=== PATIENT | female | born 1965 | race Caucasian/White ===

== ENCOUNTER 2018-11-23 06:03 | Inpatient (IN) | payer OTHER ==
[~2018-11-23] VITALS: Ht 162.6 cm; Wt 107.8 kg
[2018-11-23] VITALS (17 sets, daily range): BP systolic 93–162; BP diastolic 53–96; PULSE 56–84; RESP 14–23; Ht 162.6 cm; Wt 107.8 kg
[~2018-11-23 06:03] MED LIST: CLINDAMYCIN 600 MG/D5W (PMX) 50 ML IVPB ONE; LEVO75TA65 PO
[2018-11-23] MEDS: SOD CHLORIDE 0.9% 1,000 ML IV SCH ×4 (06:30→18:18)
[2018-11-23] MEDS ORDERED: BUPIVACAINE 0.25% (MPF) 30 ML INJ ONE (07:04)
--- NOTE | 2018-11-23 07:27 | PREAC ---
Date/Time of Note Date/Time of Note DATE: 11/23/18 TIME: 07:26 Anesthesia Eval and Record Evaluation Time Pre-Procedure Interview DATE: 11/23/18 TIME: 07:26 Age 53 Sex female NPO: 8 hrs Preoperative diagnosis Abdominal mass Planned procedure Excision of abdominal mass Past Medical History Past Medical History: Includes Endo: Hypothyroid GI: Morbid obesity Surgery & Anesthesia Issues No known issue Meds Anticoagulation: No Beta Lance within 24 hr: No Reason Beta Lance not given: Pt. not on B-Lance Reported Medications Levothyroxine Sodium* (Levoxyl*) 75 Mcg Tablet, 75 MCG PO BEFORE BREAKFAST, #30 TAB 08/31/18 Current Medications Sodium Chloride 1,000 ml @ 75 mls/hr [id number] IV ; Start 11/23/18 at 06:00; Stop 11/23/18 at 23:00 Meds reviewed: Yes Allergies Coded Allergies: Penicillins (Verified Allergy, Unknown, 11/23/18) Allergies Reviewed: Yes Labs/Studies Labs Reviewed: Reviewed by anesthesiologist Result Diagram: 11/23/18 0705 Laboratory Tests 11/23/18 07:05 test: N/A Studies: ECG Pre-procedure Exam Airway: Adequate mouth opening, Adequate thyromental dist Mallampati: Mallampati II Teeth: Normal Lung: Normal Heart: Normal ASA Physical Status ASA physical status: 3 Emergency: None Planned Anesthetic General/MAC: ETT Planned Pain Management Parenteral pain med Pre-operative Attestations Prior to commencing anesthesia and surgery, the patient was re-evaluated, there was verification of: *The patient's identity *The results of appropriate recent lab work and preoperative vital signs *The above evaluation not changing prior to induction *Anesthetic plan, risk benefits, alternative and complications discussed with patient/family; questions answered; patient/family understands, accepts and wishes to proceed. CRISTOBAL OSBORN MD Nov 23, 2018 07:27
[2018-11-23] MEDS ORDERED: MIDAZOLAM 1 MG/ML 2 ML INJ ONE (07:34)
[2018-11-23] MEDS ORDERED: PROPOFOL 20 ML ONE (08:05)
[2018-11-23] MEDS ORDERED: CEFAZOLIN 1 GM INJ ONE ×2 (08:05)
[2018-11-23] MEDS ORDERED: LIDOCAINE 2% (SDV) 5 ML INJ ONE (08:05)
[2018-11-23] MEDS ORDERED: ETOMIDATE 20 MG INJ ONE (08:05)
[2018-11-23] MEDS ORDERED: ONDANSETRON 4 MG INJ ONE ×2 (08:06→08:38)
--- NOTE | 2018-11-23 08:14 | OPR ---
Date/Time of Note Date/Time of Note DATE: 11/23/18 TIME: 08:11 Operative Report Procedure Date: Nov 23, 2018 Preoperative Diagnosis left abdominal wall mass Postoperative Diagnosis same Operation/Procedure Performed 1. excision of left abdominal wall mass 15 cm x 14 cm incision 20 cm 2. localized adjacent tissue transfer with the use of skin flaps 200 sq cm defect of abdominal wall 3. therapeutic injection of subcutaneous local anesthesia Surgeon see signature line Leather Drier none Anesthesia Type: general Estimated Blood Loss: 10 - 50 ml's Transfusion none Specimen left abdominal wall mass Grafts/Implants none Complications none Pt Condition Post Procedure: stable Indications This is a 53-year-old female with a painful left abdominal wall mass. She requests surgical excision of the mass. Risks alternatives benefits and personally discussed the patient. Additionally this was identified on an ultrasound of the ill-defined mass with a very prominent thickening. Patient was told that there is no definite mass but a prominent thickening and due to its painful nature patient expressed that she wanted this area to be excised out. She expressed understanding of this discussion and requests surgery. Procedure Description Patient is taken to the OR and prepped and draped in usual sterile fashion. Surgical time was performed. IV antibiotics given. Large elliptical incision made with a 10 blade. Dissection with cautery scant to the muscular layer. This left upper abdominal mass was then excised with cautery. Good hemostasis established in the surgical bed. Due to large tissue defect localized adjacent tissue transfer with use of skin flaps was performed. Multilayer closed with interrupted 2-0 Vicryl and skin jan. Therapeutic subcutaneous local anesthesia was injected at the incision site. Dry dressings were applied. Debbie BRINK Nov 23, 2018 08:14
--- NOTE | 2018-11-23 08:22 | PAC ---
Date/Time of Note Date/Time of Note DATE: 11/23/18 TIME: 08:21 Post-Anesthesia Notes Post-Anesthesia Note Last documented vital signs Vital Signs Date Temp Pulse Resp B/P (MAP) Pulse Ox O2 O2 Flow FiO2 Time Delivery Rate 11/23/18 98.0 08:20 11/23/18 70 20 128/75 96 Room Air 07:16 (92) Activity: WNL Respiratory function: WNL Cardiovascular function: WNL Mental status: Baseline Pain reasonably controlled: Yes Hydration appropriate: Yes Nausea/Vomiting absent: Yes Comments BP:112/56, P:78, Spo2:100%, T:98,2 CRISTOBAL OSBORN MD Nov 23, 2018 08:22
[2018-11-23] MEDS ORDERED: MEPERIDINE 25 MG INJ IV PRN (08:30)
[2018-11-23] MEDS ORDERED: ONDANSETRON 4 MG INJ IV PRN (08:30)
[2018-11-23] MEDS ORDERED: METOCLOPRAMIDE 10 MG INJ IV PRN (08:30)
[2018-11-23] MEDS ORDERED: DIPHENHYDRAMINE 50 MG INJ IV PRN (08:30)
[2018-11-23] MEDS ORDERED: KETOROLAC 30 MG INJ IV PRN (08:30)
[2018-11-23] MEDS ORDERED: HYDROmorphONE 1 MG/5 ML IV SYRINGE IV PRN ×2 (08:30)
[2018-11-23] MEDS ORDERED: FENTAnyl 50 MCG/ML VIAL IV PRN (08:30)
[2018-11-23] MEDS ORDERED: HYDROCODONE/APAP (5/325) TAB PO ONE (08:30)
[2018-11-23] MEDS ORDERED: HYDROmorphONE 1 MG/5 ML IV SYRINGE IV ONE (08:38)
[2018-11-23] MEDS: KETOROLAC 30 MG INJ IV PRN ×2 (09:53→18:10)
[2018-11-23] MEDS: CLINDAMYCIN 600 MG/D5W (PMX) 50 ML IVPB SCH ×2 (11:46→18:07)
[2018-11-23] MEDS: morphine 2 MG INJ IV PRN ×2 (11:51→22:48)
[2018-11-24] MEDS: CLINDAMYCIN 600 MG/D5W (PMX) 50 ML IVPB SCH ×2 (00:43→04:56)
[2018-11-24] MEDS: KETOROLAC 30 MG INJ IV PRN ×3 (00:44→18:27)
[2018-11-24 04:05] VITALS: BP 100/62; PULSE 60; RESP 18
[2018-11-24] MEDS: SOD CHLORIDE 0.9% 1,000 ML IV SCH (04:53)
[2018-11-24] MEDS: morphine 2 MG INJ IV PRN (04:53)
[2018-11-24 07:23] VITALS: BP 111/68; PULSE 68; RESP 19
--- NOTE | 2018-11-24 13:47 | PN ---
Date/Time of Note Date/Time of Note DATE: 11/24/18 TIME: 13:46 Assessment/Plan VTE Prophylaxis Risk score (from Nsg)>0 risk: 3 SCD applied (from Nsg): Yes Pharmacological prophylaxis: other Lines/Catheters IV Catheter Type (from Nrsg): Peripheral IV Assessment/Plan Assessment/Plan left abdominal mass resection having some pain issues dc home tomorrow Result Diagram: 11/24/18 0458 11/23/18 0705 Results 24hrs Laboratory Tests Test 11/24/18 04:58 White Blood Count 6.5 Red Blood Count 4.22 Hemoglobin 11.9 L Hematocrit 37.3 Mean Corpuscular Volume 88.4 Mean Corpuscular Hemoglobin 28.2 L Mean Corpuscular Hemoglobin Concent 31.9 L Red Cell Distribution Width 13.3 Platelet Count 280 Mean Platelet Volume 9.5 Immature Granulocytes % 0.300 Neutrophils % 54.4 Lymphocytes % 36.4 Monocytes % 6.6 Eosinophils % 1.7 Basophils % 0.6 Nucleated Red Blood Cells % 0.0 Immature Granulocytes # 0.020 Neutrophils # 3.5 Lymphocytes # 2.4 Monocytes # 0.4 Eosinophils # 0.1 Basophils # 0.0 Nucleated Red Blood Cells # 0.0 Subjective 24 Hr Interval Summary Free Text/Dictation patient with pain and wants to stay another day Exam/Review of Systems Exam Vitals Vital Signs Date Temp Pulse Resp B/P (MAP) Pulse Ox O2 O2 Flow FiO2 Time Delivery Rate 11/24/18 98.2 68 19 111/68 96 07:23 (82) 11/24/18 Room Air 04:05 11/23/18 8.0 08:27 Intake and Output 11/23/18 11/23/18 11/24/18 1515:00 23:00 07:00 IntakeIntake Total 1350 ml 1050 ml 1460 ml OutputOutput Total 5 ml BalanceBalance 1345 ml 1050 ml 1460 ml Exam c/d/i Results Results 24hrs Laboratory Tests Test 11/24/18 04:58 White Blood Count 6.5 Red Blood Count 4.22 Hemoglobin 11.9 L Hematocrit 37.3 Mean Corpuscular Volume 88.4 Mean Corpuscular Hemoglobin 28.2 L Mean Corpuscular Hemoglobin Concent 31.9 L Red Cell Distribution Width 13.3 Platelet Count 280 Mean Platelet Volume 9.5 Immature Granulocytes % 0.300 Neutrophils % 54.4 Lymphocytes % 36.4 Monocytes % 6.6 Eosinophils % 1.7 Basophils % 0.6 Nucleated Red Blood Cells % 0.0 Immature Granulocytes # 0.020 Neutrophils # 3.5 Lymphocytes # 2.4 Monocytes # 0.4 Eosinophils # 0.1 Basophils # 0.0 Nucleated Red Blood Cells # 0.0 Medications Medication Current Medications Morphine Sulfate (morphine) 2 mg Q2H PRN IV PAIN LEVEL 6-10 Last administered on 11/24/18at 04:53; Admin Dose 2 MG; Start 11/23/18 at 08:30 Acetaminophen/ Hydrocodone Bitart ([place] (5/325)) 1 tab Q6H PRN PO PAIN LEVEL 6-10; Start 11/23/18 at 08:30 Ketorolac Tromethamine (Toradol) 30 mg Q6H PRN IV PAIN Last administered on 11/24/18at 12:48; Admin Dose 30 MG; Start 11/23/18 at 08:30; Stop 11/26/18 at 08:29 Debbie BRINK Nov 24, 2018 13:47
[2018-11-24 15:09] VITALS: BP 109/56; PULSE 72; RESP 18
[2018-11-24 19:29] VITALS: BP 110/60; PULSE 62; RESP 18
[2018-11-24] MEDS: HYDROCODONE/APAP (5/325) TAB PO PRN (22:45)
[2018-11-25 01:41] VITALS: BP 102/54; PULSE 74; RESP 18
[2018-11-25 07:29] VITALS: BP 99/56; PULSE 72; RESP 18
[2018-11-25] MEDS: KETOROLAC 30 MG INJ IV PRN (09:12)
[2018-11-25 15:17] VITALS: BP 116/58; PULSE 76; RESP 18
[2018-11-25] MEDS: HYDROCODONE/APAP (5/325) TAB PO PRN (17:46)
== END 2018-11-25 17:52 | disposition home or self-care (01) | DRG 577 ==
LOC: SDS 06:03 → REC 08:08 → MS1 09:17 → OBSVTOIN 13:52
PROVIDERS: ADMIT Surgery; ATTEND Surgery
PROC: 0HX7XZZ Transfer Abdomen Skin, External Approach (ICD-10-PCS; 2018-11-23)
PROC: 0HB7XZZ Excision of Abdomen Skin, External Approach (ICD-10-PCS; principal; 2018-11-23 07:30)
DX: R22.2 Localized swelling, mass and lump, trunk (principal); Z68.41 Body mass index [BMI] 40.0-44.9, adult; E66.01 Morbid (severe) obesity due to excess calories; E03.9 Hypothyroidism, unspecified; G89.18 Other acute postprocedural pain
CPT/HCPCS: 80048; 85025; 85610; 85730; 88307; 99217; G0378; J0690; J1170; J1885; J2250; J2270; J2405; J3010; J7030